=== PATIENT | female | born 1980 | race African-American/Black ===

== ENCOUNTER 2018-03-29 10:44 | Emergency (ER) | payer OTHER ==
[2018-03-29 11:22] VITALS: BP 133/77; PULSE 73; TEMP 98.5; BMI 30.2
[2018-03-29] MEDS ORDERED: SODIUM CHLORIDE 0.9% 1000 ML INFUS.BAG IV ONE (11:42)
--- NOTE | 2018-03-29 11:55 | PDOC ---
History of Present Illness - General Chief Complaint: Pain, Acute Stated Complaint: ABD PAIN Time Seen by Provider: 03/29/18 11:54 History Source: Patient Exam Limitations: No Limitations - History of Present Illness Initial Comments: Pt is a 37 yo F, with PMH of HTN (not taking medication), asthma, anemia, and ovarian cysts, presents with adnexal/groin and suprapubic pain over the past 2 weeks. The pain is crampy and intermittent, and has worsened. She also noticed foul-smelling white discharge and vaginal bleeding during intercourse during this time. She denies fevers/chills, headache, vision changes, nausea/vomiting, chest pain, SOB, abdominal pain, urinary symptoms, diarrhea/constipation, or leg swelling. Pt is (2 miscarriages). The pt has 1 sexual partner, and does not use control. Pt does not follow with PCP (Dr. Tsang) or [facility]-A[employer] [employer]ures doctor. Her LMP was Oct 8, and lasted a few more days than usual, although bleeding amount was similar to prior periods. 03/29/18 14:23 03/29/18 18:35 Past History - Past Medical History Allergies/Adverse Reactions: Allergies Allergy/AdvReac Type Severity Reaction Status Date / Time No Known Allergies Allergy Verified 02/18/16 08:50 Home Medications: Ambulatory Orders Metronidazole [Metrogel] 5 gm TP DAILY 5 Days #5 gel..gram. 03/29/18 Anemia: Yes Asthma: Yes Cancer: No Cardiac Disorders: No CVA: No COPD: No CHF: No Dementia: No Diabetes: No GI Disorders: No Disorders: No HTN: Yes Hypercholesterolemia: No Liver Disease: No Seizures: No Thyroid Disease: No - Surgical History Abdominal Surgery: No Appendectomy: No Cardiac Surgery: No Cholecystectomy: No Lung Surgery: (LT LUNG) Neurologic Surgery: No Orthopedic Surgery: No - Family Disease History Family Disease History: Heart Disease: Father (hypertension) - Reproductive History (#): 6 Para: 3 Therapeutic (s) & number: Yes (2) Spontaneous : 1 - Immunization History Immunization Up to Date: Yes - Suicide/Smoking/Psychosocial Hx Smoking History: Current every day smoker Have you smoked in the past 12 months: Yes Number of Cigarettes Smoked Daily: 8 Information on smoking cessation initiated: No 'Breaking Loose' booklet given: 02/18/16 Hx Alcohol Use: No Drug/Substance Use Hx: No Substance Use Type: None Hx Substance Use Treatment: No Review of Systems - Review of Systems Able to Perform ROS?: Yes Is the patient limited Slovak proficient: No Constitutional: Yes: Weight Stable. No: Chills, Diaphoresis, Fever, Loss of Appetite, Malaise, Weakness HEENTM: No: Blurred Vision, Recent change in vision, Double Vision, Nose Congestion, Difficulty Swallowing Respiratory: No: Cough, Orthopnea, Shortness of Breath Cardiac (ROS): No: Chest Pain, Edema, Irregular Heart Rate, Lightheadedness, Palpitations, Syncope, Chest Tightness ABD/GI: Yes: Abdominal Distended ("bloated"), Abdominal cramping (suprapubic and R groin pain, cramping.). No: Abd. Pain w/ defecation, Blood Streaked Bowels, Constipated, Diarrhea, Nausea, Poor Appetite, Poor Fluid Intake, Rectal Bleeding, Vomiting : Yes: Discharge (white discharge, foul smelling.). No: Burning, Dysuria, Frequency, Flank Pain, Hematuria, Incontinence, Pain, Urgency Musculoskeletal: No: Back Pain, Joint Pain Integumentary: No: Bruising, Rash Neurological: No: Headache, Numbness, Paresthesia, Seizure, Tremors, Weakness, Unsteady Gait, Ataxia, Dizziness Psychiatric: No: Sleep Pattern Change, Change in Appetite Endocrine: No: Increased Urine, Change in Weight Hematologic/Lymphatic: Yes: Anemia. No: Blood Clots, Easy Bleeding, Easy Bruising All Other Systems: Reviewed and Negative *Physical Exam - Vital Signs Last Vital Signs Temp Pulse Resp BP Pulse Ox 98.5 F 73 18 133/77 100 03/29/18 11:19 03/29/18 11:19 03/29/18 11:19 03/29/18 11:19 03/29/18 11:19 - Physical Exam General Appearance: Yes: Nourished, Appropriately Dressed. No: Apparent Distress (vitals stable, pt able to lie comfortably) HEENT: positive: EOMI, ELIZABETH, Normal ENT Inspection, Normal Voice, Symmetrical, Pharynx Normal, Hearing Grossly Normal. negative: Scleral Icterus (R), Scleral Icterus (L), Tonsillar Exudate, Rhinorrhea Neck: positive: Trachea midline, Normal Thyroid, Supple. negative: Tender, Rigid, Lymphadenopathy (R), Lymphadenopathy (L) Respiratory/Chest: positive: Lungs Clear, Normal Breath Sounds. negative: Chest Tender, Respiratory Distress, Accessory Muscle Use, Wheezing Cardiovascular: positive: Regular Rhythm, Regular Rate, S1, S2. negative: Edema , JVD, Murmur Vascular Pulses: Carotid (R): 4+, Carotid (L): 4+ Female Pelvic Exam: positive: normal external exam, cervical os closed, normal adnexa, normal size ovaries, discharge (minimal thin white discharge), adnexal tenderness (mild L adnexal tenderness). negative: CMT, Bartholin mass, Scalene Gland, vaginal bleeding (no blood in vaginal vault) Gastrointestinal/Abdominal: positive: Normal Bowel Sounds, Flat, Soft, Organomegaly, Pulsatile Mass. negative: Tender, Distended, Guarding, Rebound Rectal Exam: positive: deferred Lymphatic: negative: Adenopathy, Tenderness Musculoskeletal: positive: Normal Inspection, CVA Tenderness Extremity: positive: Normal Capillary Refill, Normal Inspection, Normal Range of Motion, Pelvis Stable. negative: Tender, Pedal Edema Integumentary: positive: Normal Color, Dry, Warm. negative: Jaundice, Rash Neurologic: positive: blackjack dealer II-XII NML intact, Fully Oriented, Alert, Normal Mood/ Affect, Normal Response, Motor Strength 10/07 ED Treatment Course - LABORATORY CBC & Chemistry Diagram: 03/29/18 11:50 03/29/18 11:50 Medical Decision Making - Medical Decision Making Pt was seen at bedside, also seen by Dr. Cardona. Pt presenting with adnexal/ groin and suprapubic pain over the past 2 weeks. The pain is crampy and intermittent, and has worsened. She also noticed foul-smelling white discharge and vaginal bleeding during intercourse during this time. The pt has 1 sexual partner, and does not use control. Pt does not follow with PCP (Dr. Tsang ) or [facility] [employer] doctor. Considering bacterial vaginosis versus cervicitis (gonnorrhea or chlaymdia) versus ovarian cyst rupture. Ordered CBC, CMP, UA, beta-hcg, pelvic ultrasound. PE showed slightly erythematous cervix with runny, white discharge, and mild L adnexal tenderness to palpation. Ordered gonorrhea and chlamydia cultures. Provided pt 1 L NS and 1 g IV ofirmev for pain control. 03/29/18 12:57 CBC: no increased WBC, H/H higher than previous labs (9.1/29.3 today, 01/28 in 2015). CMP WNL, B-hcg negative for . UA negative for infection. Pt taken to US. Awaiting US read. 03/29/18 14:14 [id number] US/TRANSVAGINAL ULTRASOUND US HISTORY PROVIDED: Left lower quadrant pain. Real time examination of the pelvis utilizing the transvaginal probe demonstrates the following: The uterus is normal in size measuring 8.0 x 5.8 x 5.2 cm. No uterine masses are seen. A normal appearing endometrium of 9 mm thickness is identified. A nabothian cyst is noted within the cervix. The ovaries are normal in size and texture with arterial flow documented to both ovaries. There is no evidence of adnexal masses. A trace amount of free fluid is noted within the culde- sac. IMPRESSION: Trace free pelvic fluid, otherwise normal pelvic sonogram. 03/29/18 14:23 US negative for acute pathology. Pending cultures from lab. Pt will be discharge to home, with PCP and OB-PRODUCTION CLERKS SUPERVISOR follow-up. Strict return precautions provided with pt understanding. Sent Metrogel to pt pharmacy for BV treatment. 03/29/18 14:49 *DC/Admit/Observation/Transfer Diagnosis at time of Disposition: Pelvic pain, Vaginal discharge - Discharge Dispostion Disposition: HOME Condition at time of disposition: Good Decision to Admit order: No - Prescriptions Prescriptions: Metronidazole [Metrogel] 5 gm TP DAILY 5 Days #5 gel..gram. - Referrals Referrals: [facility] – [place], [place] [facility] [place] [Provider Group] Sancho Mcconnell MD [Staff Physician] - - Patient Instructions Printed Discharge Instructions: DI for Vaginal Bleeding, DI for Pelvic Pain Additional Instructions: You were seen in the ER today for pelvic pain, vaginal bleeding, and discharge. Your labwork and the pelvic ultrasound were normal. Please follow-up with a primary care doctor at [facility] and our OB-PRODUCTION CLERKS SUPERVIS[facility] doctor to discuss your visit and ensure your symptoms have resolved. We have sent Metrogel for bacterial vaginosis to your pharmacy. Our lab will reach out to you if any cultures are positive. Please return to the ER if you have worsening pain, bleeding, or discharge that does not resolve or has an odd odor, fevers or chills, or any other concerns. - Post Discharge Activity
[2018-03-29 12:01] LABS: BASO % 0.4 % (0-2.0); HEMATOCRIT 29.3 % (32.4-45.2); HEMOGLOBIN 9.1 GM/dL (10.7-15.3); LYMPH % 19.6 % (8-40); MCH 22.7 pg (25.7-33.7); MEAN CELL VOLUME 73.1 fl (80-96); MEAN PLT VOLUME 9.5 fl (7.5-11.1); MONO % 7.7 % (3.8-10.2); NEUT % 70.3 % (42.8-82.8); PLATELET COUNT 165 K/MM3 (134-434); RBC 4.01 M/mm3 (3.60-5.2); RDW 18.9 % (11.6-15.6); WHITE BLOOD COUNT 6.2 K/mm3 (4.0-10.0)
[2018-03-29 12:16] LABS: URINE APPEARANCE CLEAR; URINE BILIRUBIN NEGATIVE (<2.0 mg/dL); URINE COLOR YELLOW; URINE GLUCOSE (UA) NEGATIVE (NEGATIVE); URINE KETONE NEGATIVE (NEGATIVE); URINE LEUK ESTERASE TRACE (NEGATIVE); URINE NITRITE NEGATIVE (NEGATIVE); URINE PROTEIN NEGATIVE (NEGATIVE); URINE UROBILINOGEN 4.0 E.U/dl mg/dL (0.2-1.0)
[2018-03-29 12:18] LABS: HCG,QUALITATIVE URINE Negative
[2018-03-29 12:27] LABS: ANION GAP 6 MMOL/L (8-16); BLOOD UREA NITROGEN 12 mg/dL (7-18); CALCIUM 8.5 mg/dL (8.5-10.1); CHLORIDE 108 mmol/L (98-107); CO2 25 mmol/L (21-32); CREATININE 0.8 mg/dL (0.55-1.3); GLUCOSE,RANDOM 117 mg/dL (74-106); POTASSIUM 3.7 mmol/L (3.5-5.1); SODIUM 139 mmol/L (136-145)
--- NOTE | 2018-03-29 12:31 | PDOC ---
Attending Attestation - HPI HPI: 03/29/18 13:12 CC: Left sided pelvic pain. HPI: The patient is a 37 year old female, with a significant past medical history HTN and asthma, who presents to the emergency department with, left sided suprapubic pain. Patient also endorses white discharge. Her LMP was 10/8. She denies recent fevers, chills, headache or dizziness. She denies recent nausea, vomit, diarrhea or constipation. She denies recent dysuria, frequency, urgency or hematuria. She denies recent chest pain or shortness of breath. Allergies: NKDA <Dorian Cameron - Last Filed: 03/29/18 13:12> - Resident Resident Name: Annalisa Maharaj - ED Attending Attestation I have performed the following: I have examined & evaluated the patient, The case was reviewed & discussed with the resident, I agree w/resident's findings & plan, Exceptions are as noted - Physicial Exam PE: 03/29/18 13:23 Vitals: Triage Vital signs reviewed General Appearance: no acute distress, well nourished well developed, Head: Atraumatic, Neck: Supple;No Nucal rigidity Chest Wall: Nontender Cardiac: Regular rate and rhythym, no murmurs, no rubs, no gallops, Lungs: Clear to auscultation bilateral, good air movement bilaterally, Abdomen: Soft, non distended, normal bowel sounds, non tender to palpation Extremities: Full range of motion to all extremities, no cyanosis, clubbing, or edema Skin: Warm and dry, no rashes or lesions, no rash, no petechiae Psych: normal mood, normal affect - Medical Decision Making 03/29/18 13:23 Mild left-sided adnexal discomfort. Well-appearing no apparent distress History of ovarian cysts in the past No rebound no guarding no significant abdominal tenderness to palpation no fever no white count patient's at her baseline anemia no evidence of UTI she is not She has a transvaginal ultrasound pending we'll reassess after this No acute findings on ultrasound we'll treat with MetroGel she'll follow-up with her WELDER FITTER this week. Findings, the need for follow-up and strict return instructions discussed with patient. <Yariel Cardona - Last Filed: 03/29/18 17:01> Attestations - Attestations 03/29/18 13:12 Documentation prepared by Dorian Cameron, acting as bilingual medical receptionist for Yariel Cardona MD. <Dorian Cameron - Last Filed: 03/29/18 13:12>
[2018-03-29 12:35] LABS: EPI CELLS FEW /HPF (FEW); URINE BACTERIA RARE /hpf (NONE SEEN); URINE MUCUS RARE
[2018-03-29] MEDS ORDERED: ACETAMINOPHEN 1000 MG/100 ML VIAL (NON FORMULARY) IVPB ONE (12:57)
[2018-03-29] MEDS ORDERED: ACETAMINOPHEN INJECTION 100 ML IVPB ONE (13:11)
== END 2018-03-29 14:45 | disposition home or self-care (01) ==
LOC: JER 10:44
DX: R10.2 Pelvic and perineal pain (principal); N89.8 Other specified noninflammatory disorders of vagina; I10 Essential (primary) hypertension; J45.909 Unspecified asthma, uncomplicated
CPT/HCPCS: 36415; 76830-TC; 80048; 81003; 81015; 84702; 84703; 85025; 87086; 87491; 87591; 99281-25; J0131; J7030

== ENCOUNTER 2018-04-14 13:06 | Emergency (ER) | payer OTHER ==
[2018-04-14 13:16] VITALS: BMI 30.2
--- NOTE | 2018-04-14 14:10 | PDOC ---
History of Present Illness - General Chief Complaint: Headache Stated Complaint: SEVERE HEADACHE Time Seen by Provider: 04/14/18 13:37 History Source: Patient - History of Present Illness Initial Comments: 04/14/18 14:05 37F w/ pmhx of HTN, asthma, anemia, ovarian cysts presents with 5 day hx of headache. Pt states the headache has been progressively worse and decided to come to the ED because of new onset numbness around the periorbital region. She states she has never had these symptoms before. Denies taking anything at home for the headache. Pt reports the numbness started yesterday around the R eye and has now traveled to the L eye. She also admits to blurred vision since yesterday. Pt has not followed up with her PCP, Dr. Tsang, in many years. Pt states she has been taking Motrin for the headache the past 5 days, but yesterday she took a Percocet which helped alleviate the pain. Currently, she admits to pain behind the L eye as well as photophobia. Pt also reports sensation of "ear popping" yesterday. Pt denies any recent stressors or anxiety. Pt admits that her niece recently of brain cancer is worried about her symptoms. Additionally, she admits to cramping of her fingers. Of note, she was recently here last month for treatment of bacterial vaginosis which has since resolved. Denies f/c, chest pain, sob, abd pain, cold symptoms, sore throat. PMHx: HTN, asthma, anemia, ovarian cysts PShx: "collapsed lung" in 2013 Fhx: Multiple relatives with pancreatic/lung cx; Mother-HTN, migraines Social: Smokes 1/2 PPD x10 years, drinks alcohol socially, denies rec drug use Pt is currently self-employed and is a home health aide. She currently lives at home in an apt with her 3 kids and . Past History - Past Medical History Allergies/Adverse Reactions: Allergies Allergy/AdvReac Type Severity Reaction Status Date / Time No Known Allergies Allergy Verified 04/14/18 13:16 Anemia: Yes Asthma: Yes Cancer: No Cardiac Disorders: No CVA: No COPD: No CHF: No Dementia: No Diabetes: No GI Disorders: No Disorders: No HTN: Yes Hypercholesterolemia: No Liver Disease: No Seizures: No Thyroid Disease: No - Surgical History Abdominal Surgery: No Appendectomy: No Cardiac Surgery: No Cholecystectomy: No Lung Surgery: (LT LUNG 2014) Neurologic Surgery: No Orthopedic Surgery: No - Family Disease History Family Disease History: Heart Disease: Father (hypertension) - Reproductive History (#): 6 Para: 3 Therapeutic (s) & number: Yes (2) Spontaneous : 1 - Immunization History Immunization Up to Date: Yes - Suicide/Smoking/Psychosocial Hx Smoking History: Current every day smoker Have you smoked in the past 12 months: Yes Number of Cigarettes Smoked Daily: 8 Information on smoking cessation initiated: No 'Breaking Loose' booklet given: 02/18/16 Hx Alcohol Use: No Drug/Substance Use Hx: No Substance Use Type: None Hx Substance Use Treatment: No Review of Systems - Review of Systems Able to Perform ROS?: Yes Is the patient limited Welsh proficient: No Constitutional: Yes: Chills. No: Fever HEENTM: Yes: Eye Pain (L eye), Blurred Vision, Recent change in vision, Ear Pain. No: Nose Congestion, Throat Pain, Mouth Pain, Difficulty Swallowing Respiratory: No: Cough, Shortness of Breath, SOB with Exertion Cardiac (ROS): No: Chest Pain ABD/GI: No: Constipated, Diarrhea Musculoskeletal: Yes: Other (L leg pain). No: Neck Pain Neurological: Yes: See HPI Psychiatric: No: Anxiety, Stressors *Physical Exam - Vital Signs Last Vital Signs Temp Pulse Resp BP Pulse Ox 98 F 97 H 18 139/73 04/14/18 13:13 04/14/18 13:13 04/14/18 13:13 04/14/18 13:13 - Physical Exam General Appearance: Yes: Nourished, Appropriately Dressed HEENT: positive: EOMI, ELIZABETH, Normal ENT Inspection, Hearing Grossly Normal. negative: Pharyngeal Erythema Neck: positive: Supple Respiratory/Chest: positive: Lungs Clear, Normal Breath Sounds Cardiovascular: positive: Regular Rhythm, Regular Rate, S1, S2. negative: Murmur Vascular Pulses: Dorsalis-Pedis (R): 2+, Doralis-Pedis (L): 2+ Gastrointestinal/Abdominal: positive: Normal Bowel Sounds Extremity: positive: Normal Range of Motion. negative: Pedal Edema Integumentary: positive: Normal Color, Dry, Warm Neurologic: positive: maintenance and utilities supervisor II-XII NML intact, Fully Oriented, Alert, Motor Strength 5/5, Numbness (L orbital region), Finger to Nose (normal). negative: Facial Droop Medical Decision Making - Medical Decision Making 04/14/18 15:00 37F w/ pmhx of HTN, asthma, anemia, ovarian cyst presents with 5 day hx of LAWLER and 1 day hx of periorbital numbness. -Pt reports having migraine symptoms years ago, and also has fhx of migraines ( mother). -Will obtain head CT -Will given Reglan 10 IV, Tylenol IV 1g, IVf, and do head CT 04/14/18 17:26 -await head CT results 04/14/18 18:40 -Head CT (IOC): No IC bleed, extra-axial fluid collection, mass effect, midline shift, hydrocephalus, acute territorial infarct or depressed skull fracture evident. -Instructed patient to take Ibuprofen, Tylenol for headaches. Advised to follow up with PCP and neurologist. DC to home. Case discussed with Dr. Davalos. Deysi Maloney, - PGY1 *DC/Admit/Observation/Transfer Diagnosis at time of Disposition: Headache Qualifiers: Headache type: unspecified Headache chronicity pattern: acute headache Intractability: not intractable Qualified Code(s): R51 - Headache - Discharge Dispostion Disposition: HOME Condition at time of disposition: Good Decision to Admit order: No - Referrals Referrals: Ewdard Mueller MD [Staff Physician] - Tray Mcgrath MD [Staff Physician] - - Patient Instructions Printed Discharge Instructions: Migraine -- Adult Additional Instructions: You were seen in the ED for complaints of headache and facial numbness. In the ED, a head CT was done that did not show any abnormalities. You were given Reglan, Tylenol and IV fluids for your symptoms. There is no acute need for hospitalization at this time. You are being discharged home. MEDICAL RECOMMENDATIONS: Please take Ibuprofen 600 mg every 4 hours as needed for headache. You may also take Tylenol 650 mg ever 4 hours as needed for headache. CONSULT RECOMMENDATIONS: Please follow up with your primary care physician within 1 week. You have been given a referral to see a neurologist. Please make an appointment with Dr. Mueller or Dr. Mcgrath within 1 week for further evaluation of your symptoms. If you experience worsening headache, slurred speech, facial droop, problems with balance and coordination, chest pain, shortness of breath, or difficulty walking, please proceed to your nearest emergency room immediately. - Post Discharge Activity
[2018-04-14] MEDS ORDERED: METOCLOPRAMIDE HCL INJECTION 10 MG/2 ML VIAL IVPB ONE (14:46)
[2018-04-14] MEDS ORDERED: ACETAMINOPHEN 1000 MG/100 ML VIAL (NON FORMULARY) IVPB ONE (14:46)
[2018-04-14] MEDS ORDERED: SODIUM CHLORIDE 1,000 ML IV STA (14:47)
--- NOTE | 2018-04-14 15:24 | PDOC ---
Attending Attestation - HPI HPI: 04/14/18 16:34 The patient is a 37 year old female, with a significant PMH of migraines, asthma, anemia, HTN, migraines, ovarian cysts, PTX s/p VATS who presents to the emergency department complaining of 5 days of headaches that progressively worsened today. The patient reports she endorses associated symptoms of clogged ear, cramped fingers and intermittent left and right side face numbness. Her LMP was 04/07/18. The patient denies any LOC, neurological deficit , tingling, and change of vision. Denies any sick contact. Denies chest pain and shortness of breath. Has taken tylenol/motrin intermittently with some improvement, last dosing yesterday. Allergies: NKDA Past surgical history: Collapsed lung in 2014 s/p VATS Social history: Smokes 1/2 PPD x10 years, drinks alcohol socially, denies rec drug use PCP: None reported Documentation prepared by Dudley Marsh, acting as medical coordinator pesticide use for Rosario Davalos MD. - Physicial Exam PE: 04/14/18 15:35 General: Well appearing, awake and alert, NAD. HEENT: TMS clear bilaterally. NCAT, PERRL, EOMI, clear conjunctiva, anicteric, moist mucus membranes, clear oropharynx, no oral lesions.. Neck: neck supple, FROM Resp: CTAB, normal and even respirations, no respiratory distress CVS: RRR, no murmurs, 2+ peripheral pulses throughout, no peripheral edema Abdomen: soft, NTND, no peritoneal signs. Back: nontender, normal inspection and ROM MSK: no edema, LAU x4, ROM intact. No clubbing or cyanosis. normal bulk and tone. Extrem: no calf tenderness Neuro: Alert, oriented to person time and place. CN II-XII grossly intact. Strength prox and distally 5/5 throughout. Sensation grossly intact to light touch. LAU x4. Gait stable. Speech clear. Skin: warm and well perfused, cap refill <2 sec, normal color Documentation prepared by Dudley Marsh, acting as medical coordinator pesticide use for Rosario Davalos MD. <Dudley Marsh - Last Filed: 04/14/18 16:34> - Resident Resident Name: Balagot,Deysi - ED Attending Attestation I have performed the following: I have examined & evaluated the patient, The case was reviewed & discussed with the resident, I agree w/resident's findings & plan - Medical Decision Making 04/14/18 15:24 I, Rosario Davalos MD, attest that this document has been prepared under my direction and personally reviewed by me in its entirety. I further attest, that it accurately reflects all work, treatment, procedures and medical decision -making performed by me. Chaim 37F w/ pmhx of migraines, HTN, asthma, anemia, ovarian cysts presents generalized headache x 5 days. Vitals wnl, no fever. No meningeal signs. No focal deficits. can be viral etiology/sinusitis with mild ENT complaints. Given new headache, CT head to r/o mass lesion or abnormalities, given atypical features and facial paresthesias. Given reglan, tylenol and IVF, reassess. s/o pending reeval, CT read and dispo. 04/14/18 17:13 04/14/18 17:15 <Rosario Davalos - Last Filed: 04/14/18 17:15>
[2018-04-14] MEDS ORDERED: ACETAMINOPHEN INJECTION 100 ML IVPB ONE (16:16)
[2018-04-14] MEDS ORDERED: METOCLOPRAMIDE HCL INJECTION 10 MG/2 ML VIAL ONE (16:16)
[2018-04-14 19:20] VITALS: BP 132/72; PULSE 89; TEMP 98.2
== END 2018-04-14 19:18 | disposition home or self-care (01) ==
LOC: JER 13:06 → JERFT 13:06 → JER 19:18
PROC: 3E033NZ Introduction of Analgesics, Hypnotics, Sedatives into Peripheral Vein, Percutaneous Approach (ICD-10-PCS; principal; 2018-04-14)
PROC: 3E033GC Introduction of Other Therapeutic Substance into Peripheral Vein, Percutaneous Approach (ICD-10-PCS; 2018-04-14)
DX: R51 Headache (principal); I10 Essential (primary) hypertension; J45.909 Unspecified asthma, uncomplicated; D64.9 Anemia, unspecified
CPT/HCPCS: 70450-TC; 96374; 96375; 99282-25; J0131; J7030

== ENCOUNTER 2019-08-13 18:11 | Emergency (ER) | payer OTHER ==
[2019-08-13] MEDS ORDERED: SODIUM CHLORIDE 1,000 ML IV STA (18:28)
--- NOTE | 2019-08-13 18:32 | PDOC ---
Rapid Medical Evaluation Chief Complaint: Vaginal Bleeding Time Seen by Provider: 08/13/19 18:27 Medical Evaluation: Allergies Allergy/AdvReac Type Severity Reaction Status Date / Time No Known Allergies Allergy Verified 04/14/18 13:16 Vital Signs Temp Pulse Resp BP Pulse Ox 98.3 F 83 18 108/69 100 08/13/19 18:25 08/13/19 18:25 08/13/19 18:25 08/13/19 18:25 08/13/19 18:25 08/13/19 18:29 I have performed a brief in-person evaluation of this patient. The patient presents with a chief complaint of: Pt is a 39 y/o female who presents to the ED with complaint of dizziness and a syncopal episode just prior to arrival. The patient has had vaginal bleeding for the last 1.5 months after stopping the depo shot secondary to insurance reasons. The patient states she has had 3 transfusions in the past, last one in March 2019. Pertinent physical exam findings: stable. Non-toxic appearing, walking without assistance. I have ordered the following: saline lock, labs, ekg The patient will proceed to the ED for further evaluation Discharge Disposition - Diagnosis Syncope - Discharge Dispostion Condition at time of disposition: Stable - Referrals - Patient Instructions - Post Discharge Activity
[2019-08-13 18:44] VITALS: BP 108/69; PULSE 83; TEMP 98.3; BMI 29.5
[2019-08-13 19:00] LABS: BASO % 0.2 % (0-2.0); EOS % 2.6 % (0-4.5); HEMATOCRIT 31.2 % (32.4-45.2); HEMOGLOBIN 9.7 GM/dL (10.7-15.3); MCH 23.8 pg (25.7-33.7); MEAN CELL VOLUME 76.8 fl (80-96); MEAN PLT VOLUME 8.5 fl (7.5-11.1); MONO % 4.8 % (3.8-10.2); NEUT % 79.4 % (42.8-82.8); PLATELET COUNT 169 K/MM3 (134-434); RBC 4.06 M/mm3 (3.60-5.2); WHITE BLOOD COUNT 6.1 K/mm3 (4.0-10.0)
[2019-08-13 21:09] LABS: HCG,QUALITATIVE URINE Negative
[2019-08-13 21:16] LABS: EPI CELLS 15.9 /HPF (0-5/HPF); HYALINE CASTS 27 /lpf (0-8); URINE APPEARANCE CLOUDY; URINE BACTERIA 274.8 /hpf (NEGATIVE); URINE BILIRUBIN NEGATIVE (NEGATIVE); URINE COLOR DK YELLOW; URINE GLUCOSE (UA) NEGATIVE (NEGATIVE); URINE KETONE TRACE (NEGATIVE); URINE LEUK ESTERASE 1+ (NEGATIVE); URINE NITRITE NEGATIVE (NEGATIVE); URINE PROTEIN 1+ (NEGATIVE); URINE RBC 3 /hpf (0-4); URINE WBC 7 /hpf (0-5)
[2019-08-13 22:01] LABS: YEAST NONE SEEN (NEGATIVE)
--- NOTE | 2019-08-13 22:06 | PDOC ---
History of Present Illness - General Chief Complaint: Vaginal Bleeding Stated Complaint: WEAKNESS/BLEEDING Time Seen by Provider: 08/13/19 18:27 History Source: Patient Exam Limitations: No Limitations - History of Present Illness Initial Comments: 08/13/19 21:53 Patient is 39 year old female with h/o pneuothorax, asthma, anemia, complaining of dizziness x3 days. Patient states that she basically has been laying in bed for the past 3 days due to dizziness-described as a spinning sensation. States that she got up to go to the bathroom today, got dizzy and fell about 5:30 PM. States that she was able to get up on her own and called the ambulance. Patient reports that she did not hit her head, she has no complaints of pain currently. States that she found herself on the floor and when she woke up had slight confusion after the incident. She called out to her mother who called the ambulance for transport to the hospital. She is concerned because she has a history of anemia and has had to have 3 blood transfusions in the past due to anemia. States that she has been having some vaginal bleeding for about 1-1/2 months. She was formally on Depakote did not renew her shot in June due to insurance reasons and since July has been bleeding persistently, changing 4 pads a day. She denies any abdominal pain, any nausea, vomiting, fever, chills. PMD: Dr. Leo PMHX: As above PSOCHX: PFAMHX: Noncontributory ALL: NKDA GENERAL/CONSTITUTIONAL: [No fever or chills. No weakness. No weight change.] HEAD, EYES, EARS, NOSE AND THROAT: [No change in vision. No ear pain or discharge. No sore throat.] CARDIOVASCULAR: [No chest pain or shortness of breath.] RESPIRATORY: [No cough, wheezing, or hemoptysis.] GASTROINTESTINAL: [No nausea, vomiting, diarrhea or constipation. No rectal bleeding.] GENITOURINARY: [No dysuria, frequency, or change in urination.] MUSCULOSKELETAL: [No joint or muscle swelling or pain. No neck or back pain.] SKIN AND BREASTS: [No rash or easy bruising.] NEUROLOGIC: [No headache, (+) vertigo, loss of consciousness, or loss of s ensation.] PSYCHIATRIC: [No depression or anxiety.] ENDOCRINE: [No increased thirst. No abnormal weight change.] HEMATOLOGIC/LYMPHATIC: [No anemia, easy bleeding, or history of blood clots.] ALLERGIC/IMMUNOLOGIC: [No hives or skin allergy. No latex allergy.] GENERAL: [The patient is awake, alert, and fully oriented, in no acute distress.] HEAD: [Normal with no signs of trauma.] EYES: [Pupils equal, round and reactive to light, extraocular movements intact, sclera anicteric, conjunctiva clear.] ENT: [Ears normal, nares patent, oropharynx clear without exudates. Moist mucous membranes.] NECK: [Normal range of motion, supple without lymphadenopathy, JVD, or masses.] LUNGS: [Breath sounds equal, clear to auscultation bilaterally. No wheezes, and no crackles.] HEART: [Regular rate and rhythm, normal S1 and S2 without murmur, rub.] ABDOMEN: [Soft, nontender, normoactive bowel sounds. No guarding, no rebound. No masses.] EXTREMITIES: [Normal range of motion, no edema. No clubbing or cyanosis. No cords, erythema, or tenderness.] NEUROLOGICAL: [Cranial nerves II through XII grossly intact. Normal speech, normal gait.] PSYCH: [Normal mood, normal affect.] SKIN: [Warm, Dry, normal turgor, no rashes or lesions noted.] Past History - Past Medical History Allergies/Adverse Reactions: Allergies Allergy/AdvReac Type Severity Reaction Status Date / Time No Known Allergies Allergy Verified 04/14/18 13:16 Anemia: Yes Asthma: Yes Cancer: No Cardiac Disorders: No CVA: No COPD: No CHF: No Dementia: No Diabetes: No GI Disorders: No Disorders: No HTN: Yes Hypercholesterolemia: No Liver Disease: No Seizures: No Thyroid Disease: No - Surgical History Abdominal Surgery: No Appendectomy: No Cardiac Surgery: No Cholecystectomy: No Lung Surgery: (LT LUNG 2014) Neurologic Surgery: No Orthopedic Surgery: No - Reproductive History (#): 6 Para: 3 Therapeutic (s) & number: Yes (2) Spontaneous : 1 - Immunization History Immunization Up to Date: Yes - Psycho Social/Smoking Cessation Hx Smoking History: Never smoked Have you smoked in the past 12 months: No Number of Cigarettes Smoked Daily: 8 Information on smoking cessation initiated: No 'Breaking Loose' booklet given: 02/18/16 Hx Alcohol Use: No Drug/Substance Use Hx: No Substance Use Type: None Hx Substance Use Treatment: No Cardiac Specific PMH - Complaint Specific PMHX Pacemaker: No *Physical Exam - Vital Signs Last Vital Signs Temp Pulse Resp BP Pulse Ox 98.3 F 83 18 108/69 100 08/13/19 18:25 08/13/19 18:25 08/13/19 18:25 08/13/19 18:25 08/13/19 18:25 ED Treatment Course - LABORATORY CBC & Chemistry Diagram: 08/13/19 18:40 08/13/19 21:47 - ADDITIONAL ORDERS Additional order review: Laboratory Results 08/13/19 08/13/19 08/13/19 21:47 21:45 20:30 PT with INR 11.60 INR 0.98 PTT (Actin FS) 31.2 Sodium 139 Potassium 4.2 Chloride 108 H Carbon Dioxide 24 Anion Gap 7 L BUN 9.0 Creatinine 0.8 Est GFR (CKD-EPI)AfAm 107.64 Est GFR (CKD-EPI)NonAf 92.87 Random Glucose 111 H Calcium 8.3 L Total Bilirubin 0.2 AST 23 ALT 21 Alkaline Phosphatase 54 Creatine Kinase 150 Creatine Kinase Index No Result Required. CK-MB (CK-2) < 1.0 Troponin I < 0.02 Total Protein 7.5 Albumin 3.4 Urine Color Dk yellow Urine Appearance Cloudy Urine pH 6.0 Ur Specific [place] 1.026 Urine Protein 1+ H Urine Glucose (UA) Negative Urine Ketones Trace H Urine Blood 3+ H Urine Nitrite Negative Urine Bilirubin Negative Urine Urobilinogen 1.0 Ur Leukocyte Esterase 1+ H Urine WBC (Auto) 7 Urine RBC (Auto) 3 Urine Casts (Auto) 27 U Pathogenic Cast Auto None seen U Epithel Cells (Auto) 15.9 Urine Bacteria (Auto) 274.8 Urine Yeast (Auto) None seen Urine HCG, Qual Negative Blood Type Antibody Screen 08/13/19 18:40 PT with INR INR PTT (Actin FS) Sodium Potassium Chloride Carbon Dioxide Anion Gap BUN Creatinine Est GFR (CKD-EPI)AfAm Est GFR (CKD-EPI)NonAf Random Glucose Calcium Total Bilirubin AST ALT Alkaline Phosphatase Creatine Kinase Creatine Kinase Index CK-MB (CK-2) Troponin I Total Protein Albumin Urine Color Urine Appearance Urine pH Ur Specific [place] Urine Protein Urine Glucose (UA) Urine Ketones Urine Blood Urine Nitrite Urine Bilirubin Urine Urobilinogen Ur Leukocyte Esterase Urine WBC (Auto) Urine RBC (Auto) Urine Casts (Auto) U Pathogenic Cast Auto U Epithel Cells (Auto) Urine Bacteria (Auto) Urine Yeast (Auto) Urine HCG, Qual Blood Type O POSITIVE Antibody Screen Negative 08/13/19 18:40 RBC 4.06 MCV 76.8 L MCHC 31.0 L RDW 19.0 H MPV 8.5 D Neutrophils % 79.4 Lymphocytes % 13.0 D Monocytes % 4.8 Eosinophils % 2.6 Basophils % 0.2 - Medications Given in the ED: ED Medications Discontinued Medications Generic Name Dose Route Start Last Admin Trade Name Freq PRN Reason Stop Dose Admin Sodium Chloride 1,000 mls @ 1,000 mls/hr 08/13/19 18:28 08/13/19 21:08 Normal Saline - IV 08/13/19 19:27 1,000 mls/hr ASDIR STA Administration Medical Decision Making - Medical Decision Making 08/13/19 21:53 Patient is 39 year old female with h/o pneuothorax, asthma, anemia, complaining of dizziness x3 days. Patient states that she basically has been laying in bed for the past 3 days due to dizziness-described as a spinning sensation. States that she got up to go to the bathroom today, got dizzy and fell about 5:30 PM. States that she was able to get up on her own and called the ambulance. Patient reports that she did not hit her head, she has no complaints of pain currently. States that she found herself on the floor and when she woke up had slight confusion after the incident. She called out to her mother who called the ambulance for transport to the hospital. She is concerned because she has a history of anemia and has had to have 3 blood transfusions in the past due to anemia. States that she has been having some vaginal bleeding for about 1-1/2 months. She was formally on Depakote did not renew her shot in June due to insurance reasons and since July has been bleeding persistently, changing 4 pads a day. She denies any abdominal pain, any nausea, vomiting, fever, chills. Patient with vertigo and a syncopal episode this evening. Work-up will include labs, EKG, cardiac enzymes IV fluids Reassess. 08/13/19 23:22 There are no acute findings on laboratory work. EKG: SR at 69 rate, normal axis, no ST-T wave changes Troponin is negative Patient feels improved I discussed the physical exam findings, ancillary test results and final diagnoses with the patient. I answered all of the patient's questions. The patient was satisfied with the care received and felt comfortable with the discharge plan and treatment plan. The Patient agrees to follow up with the primary care physician within 24-72 hours. Discharge - Discharge Information Problems reviewed: Yes Clinical Impression/Diagnosis: Syncope Qualifiers: Syncope type: vasovagal syncope Qualified Code(s): R55 - Syncope and collapse Condition: Stable Disposition: HOME - Follow up/Referral Referrals: Jose Lagos MD [Primary Care Provider] - Karlos Davidson MD [Staff Physician] - - Patient Discharge Instructions Patient Printed Discharge Instructions: DI for Syncope in Adults (Fainting) Additional Instructions: Your Discharge Instructions: You must call primary care physician within 24 hours to arrange follow-up. Return to the Emergency Department with any new, persistent or worsening symptoms, for fever, chills, SOB, dizziness or any other concerning changes that may occur. You must follow-up with your primary care doctor for referral to cardiology as indicated. - Post Discharge Activity
[2019-08-13 22:22] LABS: INR 0.98 (0.83-1.09); PROTHROMBIN TIME (PATIENT) 11.6 SEC (9.7-13.0)
[2019-08-13 22:25] LABS: ACTIVATED PTT 31.2 SECONDS (25.2-36.5)
[2019-08-13 22:53] LABS: ALBUMIN 3.4 g/dl (3.4-5.0); ALK PHOS 54 U/L (45-117); BILIRUBIN,TOTAL 0.2 mg/dL (0.2-1); CALCIUM 8.3 mg/dL (8.5-10.1); CHLORIDE 108 mmol/L (98-107); CO2 24 mmol/L (21-32); CREATININE 0.8 mg/dL (0.55-1.3); GLUCOSE,RANDOM 111 mg/dL (74-106); SGPT/ALT 21 U/L (13-61); SODIUM 139 mmol/L (136-145); TOT PROT 7.5 g/dl (6.4-8.2)
[2019-08-13 22:54] LABS: ANION GAP 7 MMOL/L (8-16); POTASSIUM 4.2 mmol/L (3.5-5.1); SGOT/AST 23 U/L (15-37)
--- NOTE | 2019-08-14 10:14 | EKG ---
Test Reason : Blood Pressure : / mmHG Vent. Rate : 069 BPM Atrial Rate : 069 BPM P-R Int : 142 ms QRS Dur : 090 ms QT Int : 394 ms P-R-T Axes : 029 038 040 degrees QTc Int : 422 ms NORMAL SINUS RHYTHM NORMAL ECG NO PREVIOUS ECGS AVAILABLE Confirmed by Miguel Dickens ([id number]) on 08/14/2019 10:13:52 AM Referred By: Confirmed By:Miguel Dickens
== END 2019-08-13 23:32 | disposition home or self-care (01) ==
LOC: JER 18:11
DX: R55 Syncope and collapse (principal); R42 Dizziness and giddiness; W18.39XA Other fall on same level, initial encounter; Y93.89 Activity, other specified; Y92.038 Other place in apartment as the place of occurrence of the external cause; Y99.8 Other external cause status; J45.909 Unspecified asthma, uncomplicated; D64.9 Anemia, unspecified; Z87.09 Personal history of other diseases of the respiratory system
CPT/HCPCS: 36415; 80053; 81003; 82550; 82553; 84484; 84703; 85025; 85610; 85730; 86850; 86900; 86901; 93005; 93010; 99284-25; J7030

== ENCOUNTER 2020-02-25 16:07 | Emergency (ER) | payer OTHER ==
[2020-02-25 16:20] VITALS: TEMP 98.7; BMI 32.3
--- NOTE | 2020-02-25 16:21 | PDOC ---
Rapid Medical Evaluation Chief Complaint: Respiratory Medical Evaluation: Allergies Allergy/AdvReac Type Severity Reaction Status Date / Time No Known Allergies Allergy Verified 04/14/18 13:16 02/25/20 16:15 39 yo h/o HTN, spontaneous pneumothorax, productive cough x 1 week, + chills, cp, nausea and sob. denies known sick contacts, recent travel. PE: speaking full sentences A/P: SOB ecg cxr labs, urine preg to main ED Discharge Disposition - Diagnosis SOB (shortness of breath) - Referrals - Patient Instructions - Post Discharge Activity
--- NOTE | 2020-02-25 17:00 | PDOC ---
History of Present Illness - General Chief Complaint: Respiratory Stated Complaint: SOB Time Seen by Provider: 02/25/20 16:27 History Source: Patient - History of Present Illness Timing/Duration: reports: other Past History - Medical History Allergies/Adverse Reactions: Allergies Allergy/AdvReac Type Severity Reaction Status Date / Time No Known Allergies Allergy Verified 04/14/18 13:16 Anemia: Yes Asthma: Yes Cancer: No Cardiac Disorders: No CVA: No COPD: No CHF: No Dementia: No Diabetes: No GI Disorders: No Disorders: No HTN: Yes Hypercholesterolemia: No Liver Disease: No Seizures: No Thyroid Disease: No - Surgical History Abdominal Surgery: No Appendectomy: No Cardiac Surgery: No Cholecystectomy: No Lung Surgery: (LT LUNG 2014) Neurologic Surgery: No Orthopedic Surgery: No - Reproductive History Is Patient Now?: No (#): 6 Para: 3 Therapeutic (s) & number: Yes (2) Spontaneous : 1 - Immunization History Immunization Up to Date: Yes - Psycho-Social/Smoking History Smoking History: Current every day smoker Have you smoked in the past 12 months: Yes Number of Cigarettes Smoked Daily: 20 Information on smoking cessation initiated: No 'Breaking Loose' booklet given: 02/18/16 - Substance Abuse Hx (Audit-C & DAST Scrn) How often the patient has a drink containing alcohol: Never Score: In Men: 4 or > Positive; In Women: 3 or > Positive: 0 Screen Result (Pos requires Nsg. Audit-10AR): Negative Review of Systems - Review of Systems Constitutional: No: Chills, Fever Respiratory: Yes: Shortness of Breath. No: Cough, Wheezing Cardiac (ROS): No: Chest Pain, Lightheadedness, Palpitations, Syncope *Physical Exam - Vital Signs Last Vital Signs Temp Pulse Resp BP Pulse Ox 98.7 F 85 18 150/95 100 02/25/20 16:15 02/25/20 16:15 02/25/20 16:15 02/25/20 16:15 02/25/20 16:15 - Physical Exam General Appearance: Yes: Appropriately Dressed, Moderate Distress HEENT: positive: Normal Voice Neck: positive: Supple Respiratory/Chest: positive: Lungs Clear, Normal Breath Sounds. negative: Respiratory Distress, Wheezing Cardiovascular: positive: Regular Rate, S1, S2 Extremity: negative: Tender, Swelling Integumentary: positive: Dry, Warm Neurologic: positive: Fully Oriented, Alert, Normal Mood/Affect ED Treatment Course - LABORATORY CBC & Chemistry Diagram: 02/25/20 17:00 02/25/20 17:00 - RADIOLOGY Radiology Studies Ordered: Category Date Time Status CHEST CTA [CT] Stat CT Scan 02/25/20 16:55 Ordered Medical Decision Making - Medical Decision Making 02/25/20 16:57 39 yo F, smoker, s/p VATs for L pneumo at [facility] 2 years ago, here with shortness of breath x2 days similar to when she had her pneumo per pt. Also complaining of pleuritic chest pain. No palpitation, diaphoresis, nausea, vomiting, LLE pain/swelling, cough, fever or chills. see exam R/o recurrent pneumo in smoker Stable but appears SOB and unable to speak in full sentences Transferred to resus room and placed on monitor w/ oxygen -CXR -EKG -labs 02/25/20 17:00 02/25/20 17:58 Hemoglobin 8.1. Patient now states she does have a history of anemia and has been transfused with blood x 3. Is supposed to be on iron pills but non- compliant. States she used to get heavy menses in the past but not currently. On records here, patient's hemoglobin has been between 8-9 going as far back as 2013. At this time, CTA chest still pending. As d/w Dr Dupree, if CTA neg, may consider transfusing 1 unit given sxs and discharge 02/25/20 18:37 CXR read as L lung scarring and possible medial pneumothorax. Patient currently in CT 02/25/20 19:15 Large, 25-30% pneumo to inferior medial portion of L lung. ED attending aware. Patient continues to be stable on 2 L O2. Patient signed out to ER resident at this time Discharge - Discharge Information Problems reviewed: Yes Clinical Impression/Diagnosis: SOB (shortness of breath), Pneumothorax on left Condition: Guarded Disposition: TRANSFER ACUTE CARE/OTHER HOSP - Follow up/Referral Referrals: Jose Lagos MD [Primary Care Provider] - - Patient Discharge Instructions - Post Discharge Activity
[2020-02-25 17:26] LABS: BASO % 0.1 % (0-2.0); EOS % 2.7 % (0-4.5); HEMATOCRIT 26.6 % (32.4-45.2); HEMOGLOBIN 8.1 GM/dL (10.7-15.3); LYMPH % 15.3 % (8-40); MCH 20.7 pg (25.7-33.7); MCHC 30.4 g/dl (32.0-36.0); MEAN CELL VOLUME 67.9 fl (80-96); MEAN PLT VOLUME 9.9 fl (7.5-11.1); NEUT % 73.9 % (42.8-82.8); PLATELET COUNT 192 K/MM3 (134-434); RBC 3.92 M/mm3 (3.60-5.2); RDW 21.1 % (11.6-15.6); WHITE BLOOD COUNT 5.2 K/mm3 (4.0-10.0)
[2020-02-25 17:52] LABS: ALBUMIN 3.7 g/dl (3.4-5.0); ALK PHOS 57 U/L (45-117); ANION GAP 6 MMOL/L (8-16); BILIRUBIN,TOTAL 0.3 mg/dL (0.2-1); BLOOD UREA NITROGEN 8.3 mg/dL (7-18); CALCIUM 8.6 mg/dL (8.5-10.1); CHLORIDE 109 mmol/L (98-107); CO2 24 mmol/L (21-32); CREATININE 0.9 mg/dL (0.55-1.3); GLUCOSE,RANDOM 105 mg/dL (74-106); POTASSIUM 3.9 mmol/L (3.5-5.1); SGOT/AST 28 U/L (15-37); SGPT/ALT 22 U/L (13-61); SODIUM 139 mmol/L (136-145); TOT PROT 8.1 g/dl (6.4-8.2)
--- OUTSIDE RECORDS SUMMARY | 2020-02-25 18:01 | XMS ---
:1980 Author Organization [facility] Support Name Relationship Address Phone UE Unavailable Unavailable Unavailable AMA KILGORE MOTHER [address] [place] [address] AMA KILGORE Sister [address] [place] [address] Re-disclosure Warning The records that you are about to access may contain information from federally- assisted alcohol or drug abuse programs. If such information is present, then the following federally mandated warning applies: This information has been disclosed to you from records protected by federal confidentiality rules (42 CFR part 2). The federal rules prohibit you from making any further disclosure of this information unless further disclosure is expressly permitted by the written consent of the person to whom it pertains or as otherwise permitted by 42 CFR part 2. A general authorization for the release of medical or other information is NOT sufficient for this purpose. The Federal rules restrict any use of the information to criminally investigate or prosecute any alcohol or drug abuse patient.The records that you are about to access may contain highly sensitive health information, the redisclosure of which is protected by Article 27-F of the [facility] Public Health law. If you continue you may haveaccess to information: Regarding HIV / AIDS; Provided by facilities licensed or operated by the [facility] Office of Mental Health; or Provided by the [facility] Office for People With Developmental Disabilities. If such information is present, then the following [facility] mandated warning applies: This information has been disclosed to you from confidential records which are protected by state law. State law prohibits you from making any further disclosure of this information without the specific written consent of the person to whom it pertains, or as otherwise permitted by law. Any unauthorized further disclosure in violation of state law may result in a fine or halfway sentence or both. A general authorization for the release of medical or other information is NOT sufficient authorization for further disclosure. Allergies and Adverse Reactions Type Description Substance Reaction Status Data Source(s ) No Known No Known Allergies No Known eCW3 ( [place] [facility]) No Known No Known Allergies No Known eCW3 ( [place] [facility]) No Known No Known Allergies No Known eCW3 ( [place] [facility]) Encounters Encounter Providers Location Date Indications Data Source(s ) Outpatient [facility] 03/06/2019 eCW3 ([facility] A28 12:00:00 AM Health Care) EDT - 03/06/2019 12:00:00 AM EDT Outpatient [facility] 01/08/2019 eCW3 ([facility] A28 12:00:00 AM Health Care) EDT - 01/08/2019 12:00:00 AM EDT Outpatient [facility] 11/19/2018 eCW3 ([facility] A28 12:00:00 AM Health Care) EDT - 11/19/2018 12:00:00 AM EDT Medications Medication Brand Start Product Dose Route Administrative Pharmacy [facility] Indications Reaction Description Data Name Date Form Instructions Instructions Source(s) medroxyprog DEPO-P 06/17/ active DEPO-SD OVERA eCW3 esterone ROVERA 2020 150 mg/ml ([place] acetate 150 150 12:00: [place] MG/ML mg/ml 00 AM Health Injectable EST Care) Suspension [Depo-Prove ra] DEPO-UNDERWATER PHOTOGRAPHER A 150 mg/ml medroxyprog DEPO-P 06/17/ active DEPO-SD OVERA eCW3 esterone ROVERA 2020 150 mg/ml ([place] acetate 150 150 12:00: [place] MG/ML mg/ml 00 AM Health Injectable EST Care) Suspension [Depo-Prove ra] DEPO-UNDERWATER PHOTOGRAPHER A 150 mg/ml medroxyprog DEPO-P 06/17/ active DEPO-SD OVERA eCW3 esterone ROVERA 2020 150 mg/ml ([place] acetate 150 150 12:00: [place] MG/ML mg/ml 00 AM Health Injectable EST Care) Suspension [Depo-Prove ra] DEPO-UNDERWATER PHOTOGRAPHER A 150 mg/ml Azithromyci Azithr 03/08/ active Azithro mycin eCW3 n 16.7 omycin 2019 1 GM ([place] MG/ML Oral 1 GM 12:00: [place] Suspension 00 AM Health Azithromyci EDT Care) n 1 GM Azithromyci Azithr 03/08/ active Azithro mycin eCW3 n 16.7 omycin 2019 1 GM ([place] MG/ML Oral 1 GM 12:00: [place] Suspension 00 AM Health Azithromyci EDT Care) n 1 GM Azithromyci Azithr 03/08/ active Azithro mycin eCW3 n 16.7 omycin 2019 1 GM ([place] MG/ML Oral 1 GM 12:00: [place] Suspension 00 AM Health Azithromyci EDT Care) n 1 GM Metronidazo Metron .0 active Metroni dazol eCW3 le 500 MG idazol 2019 {tabl e 500 mg ([place] Oral Tablet e 500 12:00: et} [place] Metronidazo mg 00 AM Health le 500 mg EDT Care) Metronidazo Metron .0 active Metroni dazol eCW3 le 500 MG idazol 2019 {tabl e 500 mg ([place] Oral Tablet e 500 12:00: et} [place] Metronidazo mg 00 AM Health le 500 mg EDT Care) Metronidazo Metron .0 active Metroni dazol eCW3 le 500 MG idazol 2019 {tabl e 500 mg ([place] Oral Tablet e 500 12:00: et} [place] Metronidazo mg 00 AM Health le 500 mg EDT Care) Metronidazo Metron .0 active Metroni dazol eCW3 le 500 MG idazol 2019 {tabl e 500 mg ([place] Oral Tablet e 500 12:00: et} [place] Metronidazo mg 00 AM Health le 500 mg EST Care) Metronidazo Metron .0 active Metroni dazol eCW3 le 500 MG idazol 2019 {tabl e 500 mg ([place] Oral Tablet e 500 12:00: et} [place] Metronidazo mg 00 AM Health le 500 mg EST Care) Metronidazo Metron 01/16/ 1.0 active Metroni dazol eCW3 le 500 MG idazol 2019 {tabl e 500 mg ([place] Oral Tablet e 500 12:00: et} [place] Metronidazo mg 00 AM Health le 500 mg [facility]) Fluconazole Flucon 1.0 suspend Flucon azole eCW3 150 MG Oral azole 2017 {tabl ed 150 MG ([place] Tablet 150 MG 12:00: et} [place] AM [facility] EDT Care) Fluconazole Flucon 1.0 suspend Flucon azole eCW3 150 MG Oral azole 2017 {tabl ed 150 MG ([place] [facility] Tablet 150 MG 12:00: et} [place] AM [facility] EDT Care) Fluconazole Flucon 1.0 suspend Flucon azole eCW3 150 MG Oral azole 2017 {tabl ed 150 MG ([place] Tablet 150 MG 12:00: et} [place] [facility] EDT Care) Fluconazole Flucon 1.0 suspend Flucon azole eCW3 150 MG Oral azole 2017 {tabl ed 150 MG ([place] [facility] Tablet 150 MG 12:00: et} [place] [facility] EDT Care) Fluconazole Flucon 1.0 suspend Flucon azole eCW3 150 MG Oral azole 2017 {tabl ed 150 MG ([place] [facility] Tablet 150 MG 12:00: et} [place] [facility] EDT Care) Fluconazole Flucon 1.0 suspend Flucon azole eCW3 150 MG Oral azole 2017 {tabl ed 150 MG ([place] [facility] Tablet 150 MG 12:00: et} [place] AM [facility] EDT Care) Ortho UNK .0 suspend Ortho eCW3 Tri-Cyclen 2014 {tabl ed Tri-Cyclen ([place] (28) 12:00: et} () [place] 0.18/0.215/ 00 AM 0.18/0.215/0 Health 0.25 MG-35 EDT .25 MG-35 Care ) MCG MCG Ortho UNK .0 suspend Ortho eCW3 Tri-Cyclen 2014 {tabl ed Tri-Cyclen ([place] (28) 12:00: et} (28) [place] 0.18/0.215/ 00 AM 0.18/0.215/0 Health 0.25 MG-35 EDT .25 MG-35 Care ) MCG MCG Ortho UNK 1.0 suspend Ortho eCW3 Tri-Cyclen 2014 {tabl ed Tri-Cyclen (H ud () 12:00: et} () [place] 0.18/0.215/ 00 AM 0.18/0.215/0 Health 0.25 MG-35 EDT .25 MG-35 Care ) MCG MCG Fluconazole Flucon .0 suspend Flucon azole eCW3 150 MG Oral azole 2014 {tabl ed 150 MG ([place] son Tablet 150 MG 12:00: et} [place] AM Health EDT Care) Fluconazole Flucon .0 suspend Flucon azole eCW3 150 MG Oral azole 2014 {tabl ed 150 MG ([place] [facility] Tablet 150 MG 12:00: et} [place] AM Health EDT Care) Fluconazole Flucon .0 suspend Flucon azole eCW3 150 MG Oral azole 2014 {tabl ed 150 MG ([place] [facility] Tablet 150 MG 12:00: et} [place] AM Health EDT Care) Ortho UNK .0 suspend Ortho eCW3 Tri-Cyclen 2014 {tabl ed Tri-Cyclen ( () 12:00: et} () [place] 0.18/0.215/ 00 AM 0.18/0.215/0 Health 0.25 MG-35 EDT .25 MG-35 Care ) MCG MCG Ortho UNK .0 suspend Ortho eCW3 Tri-Cyclen 2014 {tabl ed Tri-Cyclen (H ud () 12:00: et} () [place] 0.18/0.215/ 00 AM 0.18/0.215/0 Health 0.25 MG-35 EDT .25 MG-35 Care ) MCG MCG Ortho UNK .0 suspend Ortho eCW3 Tri-Cyclen 2014 {tabl ed Tri-Cyclen ([facility] ud[place] () 12:00: et} () [place] 0.18/0.215/ 00 AM 0.18/0.215/0 Health 0.25 MG-35 EDT .25 MG-35 Care ) MCG MCG DEPO-UNDERWATER PHOTOGRAPHER UNK 08/27/ suspend DEPO-PRO VERA eCW3 A 150 MG/ML 2014 ed 150 MG/ML ( dson 12:00: [place] 00 AM Health EDT Care) DEPO-UNDERWATER PHOTOGRAPHER UNK 08/27/ suspend DEPO-PRO VERA eCW3 A 150 MG/ML 2014 ed 150 MG/ML ( dson 12:00: [place] 00 AM Health EDT Care) DEPO-UNDERWATER PHOTOGRAPHER UNK 08/27/ suspend DEPO-PRO VERA eCW3 A 150 MG/ML 2014 ed 150 MG/ML ( dson 12:00: [place] 00 AM Health EDT Care) Lo Loestrin Lo .0 suspend Lo Loest rin eCW3 Fe 1 MG-10 Loestr 2014 {tabl ed Fe 1 MG-10 ([place] MCG / 10 in Fe 12:00: et} MCG / 10 MCG [place] MCG 1 00 AM Health MG-10 EST Care) MCG / 10 MCG Lo Loestrin Lo .0 suspend Lo Loest rin eCW3 Fe 1 MG-10 Loestr 2014 {tabl ed Fe 1 MG-10 ([place] MCG / 10 in Fe 12:00: et} MCG / 10 MCG [place] MCG 1 00 AM Health MG-10 EST Care) MCG / 10 MCG Lo Loestrin Lo .0 suspend Lo Loest rin eCW3 Fe 1 MG-10 Loestr 2014 {tabl ed Fe 1 MG-10 ([place] MCG / 10 in Fe 12:00: et} MCG / 10 MCG [place] MCG 1 00 AM Health MG-10 EST Care) MCG / 10 MCG Metronidazo Flagyl 1.0 active Flagyl 50 0 eCW3 le 500 MG 500 MG {tabl MG ([place] Oral Tablet et} [place] [Flagyl] Health Flagyl 500 Care) MG UNK suspend eCW3 Vitamins ed Vitamins ([facility]) DEPO-UNDERWATER PHOTOGRAPHER UNK active DEPO-UNDERWATER PHOTOGRAPHER A eCW3 A 150 MG/ML 150 MG/ML ([facility]) DEPO-UNDERWATER PHOTOGRAPHER UNK active DEPO-UNDERWATER PHOTOGRAPHER A eCW3 A 150 MG/ML 150 MG/ML ([facility]) Fluconazole Flucon 1.0 active Fluconazo le eCW3 150 MG Oral azole {tabl 150 MG ([place] Tablet 150 MG et} [facility]) Fluconazole Flucon 1.0 active Fluconazo le eCW3 150 MG Oral azole {tabl 150 MG ([place] son Tablet 150 MG et} [facility]) Fluconazole Flucon 1.0 active Fluconazo le eCW3 150 MG Oral azole {tabl 150 MG ([place] son Tablet 150 MG et} [facility]) Fluconazole Flucon 1.0 active Fluconazo le eCW3 150 MG Oral azole {tabl 150 MG ([place] [facility] Tablet 150 MG et} [facility]) DEPO-UNDERWATER PHOTOGRAPHER UNK active DEPO-UNDERWATER PHOTOGRAPHER A eCW3 A 150 MG/ML 150 MG/ML ([facility]) Lysteda UNK suspend [place] eCW3 ed ([facility]) UNK suspend eCW3 Vitamins ed Vitamins ([facility]) DEPO-UNDERWATER PHOTOGRAPHER UNK active DEPO-UNDERWATER PHOTOGRAPHER A eCW3 A 150 MG/ML 150 MG/ML ([facility]) Metronidazo Flagyl 1.0 active Flagyl 50 0 eCW3 le 500 MG 500 MG {tabl MG ([place] Oral Tablet et} [place] [[address]) MG Fluconazole Flucon 1.0 active Fluconazo le eCW3 150 MG Oral azole {tabl 150 MG ([facility] son Tablet 150 MG et} [facility]) Fluconazole Flucon 1.0 active Fluconazo le eCW3 150 MG Oral azole {tabl 150 MG ([place] [facility] Tablet 150 MG et} [facility]) Ortho UNK suspend Ortho eCW3 Tri-Cyclen ed Tri-Cyclen ([facility] (28) (28) [facility]) Metronidazo Flagyl 1.0 active Flagyl 50 0 eCW3 le 500 MG 500 MG {tabl MG ([place] Oral Tablet et} [place] [[facility]] [facility] [address] [facility]) MG Lysteda UNK suspend [place] eCW3 ed ([facility]) Fluconazole Flucon 1.0 active Fluconazo le eCW3 150 MG Oral azole {tabl 150 MG ([place] son Tablet 150 MG et} [facility]) Ortho UNK suspend Ortho eCW3 Tri-Cyclen ed Tri-Cyclen ( dson (28) (28) [facility]) Fluconazole Flucon 1.0 active Fluconazo le eCW3 150 MG Oral azole {tabl 150 MG ([facility] son Tablet 150 MG et} [facility]) DEPO-UNDERWATER PHOTOGRAPHER UNK active DEPO-UNDERWATER PHOTOGRAPHER A eCW3 A 150 MG/ML 150 MG/ML ([facility]) UNK suspend eCW3 Vitamins ed Vitamins ([facility]) Lysteda UNK suspend [place] eCW3 ed ([facility]) Ortho UNK suspend Ortho eCW3 Tri-Cyclen ed Tri-Cyclen ([place] [facility] (28) (28) [facility]) DEPO-UNDERWATER PHOTOGRAPHER UNK active DEPO-UNDERWATER PHOTOGRAPHER A eCW3 A 150 MG/ML 150 MG/ML ([facility]) Fluconazole Flucon 1.0 active Fluconazo le eCW3 150 MG Oral azole {tabl 150 MG ([facility] son Tablet 150 MG et} [facility]) Insurance Providers Payer name Policy type Policy ID Covered Covered constitution party's Policy P bhavna / Coverage constitution party ID relationship to [employer] Inf ormation type roberts COUNTS INCLUDE 234 BEDS AT [facility] [id number] SP [id number] NON CAP [place] [facility] [id number] S [id number] [place] Medicaid [id number] S [id number] Regular Clinic Visit Dental [id number] S [id number] [employer] MKD (DO NOT USE) [id number] S [id number] [place] [facility] Auth PCP Not MVNHC/YHC/C [place] FFS [id number] S [id number] [facility] Chele Vision [id number] S [id number] MKD [facility] Family [id number] S [id number] Planning MKD & EP 3 & 4 Only Problems, Conditions, and Diagnoses Code Display Name Description Problem Type Effective Dates Data Source(s) N76.1 Chronic vaginitis Chronic vaginitis Problem 03/06/2019 eCW3 ([place] 12:00:00 AM EDT [facility]) N76.0 Acute vaginitis Acute vaginitis Problem 02/15/2017 eCW3 ([place] 12:00:00 AM [facility] Care) Z33.1 Problem eCW3 ([facility]) V22.1 Supervision of , NORMAL Problem eCW 3 ([place] high risk [facility] Care) V22.2 STATE STATE Diagnosis [address] ([place] INCIDENTAL INCIDENTAL 07:29:24 PM [facility]) Social History Code Duration Value Status Description Data Source(s ) Smoking 03/06/2019 Current Smoker completed Current Smoker eCW3 ( [facility] 12:00:00 AM ED Health Ms re) Smoking 03/06/2019 Current Smoker completed Current Smoker eCW3 ( [facility] 12:00:[address] [facility] Health Ms re) Smoking 03/06/2019 Current Smoker completed Current Smoker eCW3 ( [facility] 12:00:00 AM [facility] re) Current Smoker completed Current Smoker eCW3 ( [facility]) Current Smoker completed Current Smoker eCW3 ( [facility]) Current Smoker completed Current Smoker eCW3 ( [facility]) Vital Signs ID Date Data Source UNK Name Value Range Interpretation Code Description Data Source(s) Diastolic blood 64 mm[Hg] 64 mm[Hg] eCW3 ([facility]) Systolic blood 104 mm[Hg] 104 mm[Hg] eCW3 ([facility]) Body temperature 97.9 [degF] 97.9 [degF] eCW3 ( [facility]) Heart rate 20 /min 20 /min eCW3 ([facility]) Body mass index 29.37 kg/m2 29.37 kg/m2 eCW3 ([place] (BMI) [Ratio] [facility]) Body weight 182 [lb_av] 182 [lb_av] eCW3 ([facility]) Body height 66 [in_i] 66 [in_i] eCW3 ([facility]) Diastolic blood 75 mm[Hg] 75 mm[Hg] eCW3 ([facility]) Systolic blood 117 mm[Hg] 117 mm[Hg] eCW3 ([facility]) Body temperature 98.5 [degF] 98.5 [degF] eCW3 ( [facility]) Heart rate 20 /min 20 /min eCW3 ([facility]) Body mass index 30.02 kg/m2 30.02 kg/m2 eCW3 ([place] (BMI) [Ratio] [facility]) Body weight 186 [lb_av] 186 [lb_av] eCW3 ([facility]) Body height 66 [in_i] 66 [in_i] eCW3 ([facility]) Patient Treatment Plan of Care Planned Activity Planned Date Details Description Data Source (s) medroxyprogesterone acetate 06/17/2019 eCW3 ([facility] 150 MG/ML Injectable 12:00:00 AM [facility]) Suspension [Depo-Provera] medroxyprogesterone acetate 06/17/2019 eCW3 ([facility] 150 MG/ML Injectable 12:00:00 AM EST [facility]) Suspension [Depo-Provera] medroxyprogesterone acetate 06/17/2019 eCW3 ([facility] 150 MG/ML Injectable 12:00:00 AM [facility]) Suspension [Depo-Provera] DEPO-PROVERA 150 MG/ML eCW3 ([facility]) DEPO-PROVERA 150 MG/ML eCW3 ([facility]) DEPO-PROVERA 150 MG/ML eCW3 ([facility])
--- NOTE | 2020-02-25 19:11 | PDOC ---
*Physical Exam - Vital Signs Last Vital Signs Temp Pulse Resp BP Pulse Ox 98.7 F 70 16 136/83 100 02/25/20 18:58 02/25/20 18:58 02/25/20 18:58 02/25/20 18:58 02/25/20 18:58 - Physical Exam 02/25/20 19:08 gen: aaox3 heart; +s1s2 reg lungs: slighly dimished bs L lung otherwise clear Heart Score/ECG Review - ECG Intrepretation Comment:: 02/25/20 19:09 sinus at 73, nl axis, nl interval, no acute st/t wave ED Treatment Course - LABORATORY CBC & Chemistry Diagram: 02/25/20 17:00 02/25/20 17:00 - ADDITIONAL ORDERS Additional order review: Laboratory Results 02/25/20 02/25/20 17:00 17:00 Sodium 139 Potassium 3.9 Chloride 109 H Carbon Dioxide 24 Anion Gap 6 L BUN 8.3 Creatinine 0.9 Est GFR (CKD-EPI)AfAm 93.35 Est GFR (CKD-EPI)NonAf 80.54 Random Glucose 105 Calcium 8.6 Total Bilirubin 0.3 AST 28 ALT 22 Alkaline Phosphatase 57 Creatine Kinase 432 H Creatine Kinase Index No Result Required. CK-MB (CK-2) < 1.0 Troponin I < 0.02 Total Protein 8.1 Albumin 3.7 Serum , Qual Negative 02/25/20 17:00 RBC 3.92 MCV 67.9 L MCHC 30.4 L RDW 21.1 H MPV 9.9 D Neutrophils % 73.9 Lymphocytes % 15.3 Monocytes % 8.0 Eosinophils % 2.7 Basophils % 0.1 Medical Decision Making - Medical Decision Making 02/25/20 19:09 a/p: 39yo female with L sided cp -pt with complicated ptx on ct had prior vats at [facility] will transfer back to [facility] for ct sx eval Discharge - Discharge Information Problems reviewed: Yes Clinical Impression/Diagnosis: SOB (shortness of breath), Pneumothorax on left Condition: Guarded Disposition: TRANSFER ACUTE CARE/OTHER HOSP - Follow up/Referral Referrals: Jose Lagos MD [Primary Care Provider] - - Patient Discharge Instructions - Post Discharge Activity - Transfer to Acute Care Facility Receiving Facility Name: [facility]
[2020-02-25 19:23] LABS: ANISOCYTOSIS 1+; MACROCYTOSIS 0
[2020-02-25] MEDS ORDERED: morphine CARPU-JECT 4 MG/1 ML DISP.SYRIN IVPUSH ONE (19:37)
[2020-02-25] MEDS ORDERED: morphine SULFATE 4 MG/ML VIAL ONE (19:43)
--- NOTE | 2020-02-25 20:43 | PDOC ---
*Physical Exam - Vital Signs Last Vital Signs Temp Pulse Resp BP Pulse Ox 98.7 F 70 16 136/83 100 02/25/20 18:58 02/25/20 18:58 02/25/20 18:58 02/25/20 18:58 02/25/20 18:58 ED Treatment Course - LABORATORY CBC & Chemistry Diagram: 02/25/20 17:00 02/25/20 17:00 - ADDITIONAL ORDERS Additional order review: Laboratory Results 02/25/20 02/25/20 02/25/20 17:00 17:00 17:00 Sodium 139 Potassium 3.9 Chloride 109 H Carbon Dioxide 24 Anion Gap 6 L BUN 8.3 Creatinine 0.9 Est GFR (CKD-EPI)AfAm 93.35 Est GFR (CKD-EPI)NonAf 80.54 Random Glucose 105 Calcium 8.6 Total Bilirubin 0.3 AST 28 ALT 22 Alkaline Phosphatase 57 Creatine Kinase 432 H Creatine Kinase Index No Result Required. CK-MB (CK-2) < 1.0 Troponin I < 0.02 Total Protein 8.1 Albumin 3.7 Serum , Qual Negative Blood Type O POSITIVE Antibody Screen Negative 02/25/20 17:00 RBC 3.92 MCV 67.9 L MCHC 30.4 L RDW 21.1 H MPV 9.9 D Neutrophils % 73.9 Lymphocytes % 15.3 Monocytes % 8.0 Eosinophils % 2.7 Basophils % 0.1 - Medications Given in the ED: ED Medications Discontinued Medications Generic Name Dose Route Start Last Admin Trade Name Freq PRN Reason Stop Dose Admin Morphine Sulfate 4 mg 02/25/20 19:37 02/25/20 19:53 Morphine Injection - IVPUSH 02/25/20 19:38 4 mg ONCE ONE Administration Medical Decision Making - Medical Decision Making Pt was signed out by YARD CONDUCTOR Brian Ragland. Pt presented with SOB, found to have L-sided pneumothorax 25-30%. Pt has been hemodynamically stable. Provided 4 mg IV morphine and NRB for comfort. Pt accepted to [facility] (Dr. Abbasi, ER), also spoke to CT surgery (Dr. Sanchez) Pt NPO after midnight Pending transfer to [facility] 02/25/20 20:41 EMS arrived for pt. Pt hemodynamically stable, NRB for comfort. 02/25/20 21:51 Discharge - Discharge Information Problems reviewed: Yes Clinical Impression/Diagnosis: SOB (shortness of breath), Pneumothorax on left Condition: Guarded Disposition: TRANSFER ACUTE CARE/OTHER HOSP - Admission No - Follow up/Referral Referrals: Jose Lagos MD [Primary Care Provider] - - Patient Discharge Instructions - Post Discharge Activity - Transfer to Acute Care Facility Receiving Facility Name: [facility] Accepting Physician:: Dr. Abbasi (ER)
[2020-02-26 01:22] VITALS: BP 153/89; PULSE 77
--- NOTE | 2020-02-26 10:01 | EKG ---
Test Reason : Blood Pressure : / mmHG Vent. Rate : 073 BPM Atrial Rate : 073 BPM P-R Int : 170 ms QRS Dur : 096 ms QT Int : 402 ms P-R-T Axes : 048 073 058 degrees QTc Int : 442 ms NORMAL SINUS RHYTHM NORMAL ECG WHEN COMPARED WITH ECG OF 13-AUG-2019 18:37, NO SIGNIFICANT CHANGE WAS FOUND Confirmed by Miguel Dickens ([id number]) on 02/26/2020 10:00:32 AM Referred By: Confirmed By:Miguel Dickens
== END 2020-02-25 21:45 | disposition short-term general hospital (02) ==
LOC: JER 16:07
PROC: 3E033NZ Introduction of Analgesics, Hypnotics, Sedatives into Peripheral Vein, Percutaneous Approach (ICD-10-PCS; principal; 2020-02-25)
PROC: 3E033GC Introduction of Other Therapeutic Substance into Peripheral Vein, Percutaneous Approach (ICD-10-PCS; 2020-02-25)
DX: R06.02 Shortness of breath (principal); J93.9 Pneumothorax, unspecified
CPT/HCPCS: 36415; 71046-TC-FY; 71275-TC; 80053; 82550; 82553; 84484; 84703; 85025; 86850; 86900; 86901; 93005; 93010; 99285-25; Q9967

== ENCOUNTER 2021-06-03 16:24 | Emergency (ER) | payer OTHER ==
[2021-06-03 16:37] VITALS: BP 111/67; PULSE 80; TEMP 97.9; BMI 29.2
[2021-06-04 16:11] LABS: SARS-CoV-2 NAA Not Detected (Not Detected)
== END 2021-06-03 17:50 | disposition home or self-care (01) ==
LOC: JER 16:24
DX: B34.9 Viral infection, unspecified (principal)
CPT/HCPCS: 87804; 99283-25; C9803; U0003; U0005

== ENCOUNTER 2024-11-02 15:46 | Observation (INO) | payer OTHER ==
[2024-11-02] MEDS ORDERED: ACETAMINOPHEN INJECTION 100 ML ONE (16:38)
[2024-11-02] MEDS: ACETAMINOPHEN 1000 MG/100 ML BAG IVPB ONE (17:30)
[2024-11-02 17:43] LABS: ABSOLUTE IMMATURE GRANULOCYTES 0.01 x10^3/uL (0.0-0.031); BASOPHILS # 0.01 x10^3/uL (0.01-0.08); EOSINOPHILS # 0.11 x10^3/uL (0.04-0.36); HEMATOCRIT 23.4 % (34.1-44.9); HEMOGLOBIN 6.2 g/dL (11.2-15.7); MCHC 26.5 g/dl (32.2-35.5)
[2024-11-02 17:44] LABS: EOSINOPHIL % 2.4 % (0.7-5.8); MEAN CELL VOLUME 70.1 fl (79.4-94.8); MEAN PLT VOLUME 10.6 fl (9.4-12.3); MONOCYTE # 0.24 x10^3/uL (0.24-0.86); MONOCYTE % 5.2 % (4.7-12.5); PLATELET COUNT 195 x10^3/uL (182-369); RDW 19.5 % (12.2-17.1)
[2024-11-02 17:50] LABS: INR 1.07 (0.83-1.09); PROTHROMBIN TIME (PATIENT) 11.7 SEC (9.7-13.0)
[2024-11-02 17:53] LABS: ACTIVATED PTT 28.6 SECONDS (25.2-36.5)
[2024-11-02 18:00] LABS: POTASSIUM 3.7 mmol/L (3.5-5.1)
[2024-11-02 18:02] LABS: CALCIUM 9.2 mg/dL (8.5-10.1)
[2024-11-02 18:03] LABS: ALBUMIN 3.9 g/dl (3.4-5.0); BLOOD UREA NITROGEN 11.1 mg/dL (7-18); MAGNESIUM 2.1 mg/dL (1.8-2.4)
[2024-11-02 18:07] LABS: BILIRUBIN,TOTAL 0.4 mg/dL (0.2-1); CREATININE 0.9 mg/dL (0.55-1.3); TOT PROT 7.6 g/dl (6.4-8.2)
[2024-11-02 18:57] LABS: HCV DIAGNOSTIC IN-HOUSE W/RFLX NON-REACTIVE (NONREACTIVE); HIV INTERPRETATION NEGATIVE (NEGATIVE)
[2024-11-02] MEDS ORDERED: METOCLOPRAMIDE HCL INJECTION 10 MG/2 ML VIAL ONE (20:00)
[2024-11-02] MEDS: METOCLOPRAMIDE HCL INJECTION 10 MG/2 ML VIAL IVPUSH ONE (20:33)
[2024-11-02] MEDS ORDERED: METOCLOPRAMIDE HCL INJECTION 10 MG/2 ML VIAL IVPUSH PRN (20:47)
[2024-11-02] MEDS: IRON SUCROSE INJECTION 200 MG in SODIUM CHLORIDE 100 ML IVPB ONE (23:04)
[2024-11-02] MEDS: ACETAMINOPHEN 325 MG TABLET (FP) PO PRN (23:04)
[2024-11-02 23:29] VITALS: BMI 35.0
[2024-11-03 09:08] LABS: ABSOLUTE IMMATURE GRANULOCYTES 0.01 x10^3/uL (0.0-0.031); BASOPHILS # 0.01 x10^3/uL (0.01-0.08); EOSINOPHIL % 3.2 % (0.7-5.8); EOSINOPHILS # 0.11 x10^3/uL (0.04-0.36); HEMATOCRIT 21.5 % (34.1-44.9); HEMOGLOBIN 5.7 g/dL (11.2-15.7); MCHC 26.5 g/dl (32.2-35.5); MONOCYTE # 0.33 x10^3/uL (0.24-0.86); MONOCYTE % 9.5 % (4.7-12.5); PLATELET COUNT 168 x10^3/uL (182-369); RDW 19.3 % (12.2-17.1)
[2024-11-03 09:23] LABS: Reticulocyte % 1.92 % (0.5-1.7)
[2024-11-03 09:44] LABS: POTASSIUM 3.7 mmol/L (3.5-5.1)
[2024-11-03 09:48] LABS: ALBUMIN 3.3 g/dl (3.4-5.0); BLOOD UREA NITROGEN 10.4 mg/dL (7-18); CALCIUM 8.4 mg/dL (8.5-10.1); MAGNESIUM 1.9 mg/dL (1.8-2.4)
[2024-11-03 09:50] LABS: CREATININE 0.7 mg/dL (0.55-1.3); PHOSPHOROUS 2.8 mg/dL (2.5-4.9)
[2024-11-03 09:52] LABS: BILIRUBIN,TOTAL 0.2 mg/dL (0.2-1)
[2024-11-03 09:53] LABS: TOT PROT 6.5 g/dl (6.4-8.2)
[2024-11-03] MEDS: IRON SUCROSE INJECTION 200 MG in SODIUM CHLORIDE 100 ML IVPB ONE ×2 (10:57→20:31)
[2024-11-03] MEDS: ACETAMINOPHEN 1000 MG/100 ML BAG IVPB PRN (12:16)
[2024-11-03 12:22] LABS: BASOPHILS # 0.01 x10^3/uL (0.01-0.08); EOSINOPHIL % 2.7 % (0.7-5.8); EOSINOPHILS # 0.11 x10^3/uL (0.04-0.36); HEMATOCRIT 23.8 % (34.1-44.9); HEMOGLOBIN 6.2 g/dL (11.2-15.7); MCHC 26.1 g/dl (32.2-35.5); MEAN CELL VOLUME 70.6 fl (79.4-94.8); MONOCYTE # 0.37 x10^3/uL (0.24-0.86); MONOCYTE % 9.2 % (4.7-12.5); PLATELET COUNT 186 x10^3/uL (182-369); RDW 19.3 % (12.2-17.1)
[2024-11-03] MEDS ORDERED: ACETAMINOPHEN 1000 MG/100 ML BAG IVPB PRN (18:06)
[2024-11-03] MEDS: traMADol HCL 50 MG TABLET PO PRN (18:17)
[2024-11-03] MEDS: LIDOCAINE 5% TOPICAL PATCH TP SCH (18:18)
[2024-11-03] MEDS: LIDOCAINE PATCH REMOVAL MC SCH (21:56)
[2024-11-04 09:01] LABS: ABSOLUTE IMMATURE GRANULOCYTES 0.01 x10^3/uL (0.0-0.031); BASOPHILS # 0.01 x10^3/uL (0.01-0.08); EOSINOPHIL % 3.3 % (0.7-5.8); EOSINOPHILS # 0.12 x10^3/uL (0.04-0.36); HEMATOCRIT 22.3 % (34.1-44.9); HEMOGLOBIN 5.8 g/dL (11.2-15.7); MEAN CELL VOLUME 70.1 fl (79.4-94.8); MONOCYTE % 8.2 % (4.7-12.5); PLATELET COUNT 158 x10^3/uL (182-369); RDW 19.2 % (12.2-17.1)
[2024-11-04 09:02] LABS: Reticulocyte % 2.24 % (0.5-1.7)
[2024-11-04 09:23] LABS: POTASSIUM 3.7 mmol/L (3.5-5.1)
[2024-11-04 09:30] LABS: ALBUMIN 3.5 g/dl (3.4-5.0)
[2024-11-04 09:31] LABS: BLOOD UREA NITROGEN 9.4 mg/dL (7-18)
[2024-11-04 09:32] LABS: CREATININE 0.8 mg/dL (0.55-1.3)
[2024-11-04 09:33] LABS: BILIRUBIN,TOTAL 0.3 mg/dL (0.2-1); MAGNESIUM 1.9 mg/dL (1.8-2.4); TOT PROT 6.9 g/dl (6.4-8.2)
[2024-11-04] MEDS: POLYETHYLENE GLYCOL (HEALTHYLAX) 3350 17 GM PACKET PO SCH (15:59)
[2024-11-04 16:02] LABS: POTASSIUM 3.8 mmol/L (3.5-5.1)
[2024-11-04 16:03] LABS: CALCIUM 9.4 mg/dL (8.5-10.1)
[2024-11-04 16:04] LABS: BLOOD UREA NITROGEN 8.4 mg/dL (7-18)
[2024-11-04 16:07] LABS: CREATININE 0.8 mg/dL (0.55-1.3)
[2024-11-04] MEDS: IRON SUCROSE INJECTION 200 MG in SODIUM CHLORIDE 100 ML IVPB ONE (18:13)
[2024-11-04] MEDS: ACETAMINOPHEN 1000 MG/100 ML BAG IVPB ONE (23:16)
[2024-11-05] MEDS: ACETAMINOPHEN 1000 MG/100 ML BAG IVPB PRN (07:41)
[2024-11-05 09:02] LABS: ABSOLUTE IMMATURE GRANULOCYTES 0.02 x10^3/uL (0.0-0.031); BASOPHILS # 0.01 x10^3/uL (0.01-0.08)
[2024-11-05 09:04] LABS: EOSINOPHIL % 2.9 % (0.7-5.8); EOSINOPHILS # 0.12 x10^3/uL (0.04-0.36); HEMATOCRIT 24.5 % (34.1-44.9); HEMOGLOBIN 6.8 g/dL (11.2-15.7); MCHC 27.8 g/dl (32.2-35.5); MEAN CELL VOLUME 71.8 fl (79.4-94.8); MONOCYTE # 0.36 x10^3/uL (0.24-0.86); MONOCYTE % 8.6 % (4.7-12.5); PLATELET COUNT 130 x10^3/uL (182-369); RDW 21.2 % (12.2-17.1)
[2024-11-05 09:23] LABS: ALBUMIN 3.6 g/dl (3.4-5.0)
[2024-11-05 09:24] LABS: BLOOD UREA NITROGEN 10.1 mg/dL (7-18); CALCIUM 9.2 mg/dL (8.5-10.1)
[2024-11-05 09:25] LABS: BILIRUBIN,TOTAL 0.3 mg/dL (0.2-1); MAGNESIUM 1.9 mg/dL (1.8-2.4); TOT PROT 6.9 g/dl (6.4-8.2)
[2024-11-05 09:27] LABS: CREATININE 0.8 mg/dL (0.55-1.3)
[2024-11-05] MEDS: IRON SUCROSE INJECTION 200 MG in SODIUM CHLORIDE 100 ML IVPB ONE (12:09)
[2024-11-05] MEDS: CycloBENZAprine HCL 5 MG TABLET PO ONE (12:09)
[2024-11-05] MEDS: NAPROXEN 375 MG TABLET PO ONE (12:10)
[2024-11-05] MEDS: CycloBENZAprine HCL 10 MG TABLET (FP) PO ONE (12:11)
[2024-11-05] MEDS: BISACODYL 5 MG TABLET.DR (FP) PO ONE ×2 (16:24→16:38)
[2024-11-05] MEDS: PEG 3350/NA SULF BICARB CL/KCL 4000 ML SOLN.RECON PO ONE (17:21)
[2024-11-06] MEDS ORDERED: FERROUS SO4 325 MG TABLET (FP) PO SCH (07:00)
[2024-11-06 08:44] LABS: ABSOLUTE IMMATURE GRANULOCYTES 0.02 x10^3/uL (0.0-0.031); BASOPHILS # 0.02 x10^3/uL (0.01-0.08); HEMATOCRIT 27.7 % (34.1-44.9); HEMOGLOBIN 7.6 g/dL (11.2-15.7); MCHC 27.4 g/dl (32.2-35.5); MEAN CELL VOLUME 73.3 fl (79.4-94.8); MONOCYTE # 0.46 x10^3/uL (0.24-0.86); MONOCYTE % 9.3 % (4.7-12.5); PLATELET COUNT 146 x10^3/uL (182-369); RDW 22.9 % (12.2-17.1)
[2024-11-06 08:51] LABS: INR 1.17 (0.83-1.09); PROTHROMBIN TIME (PATIENT) 12.8 SEC (9.7-13.0)
[2024-11-06 08:58] LABS: POTASSIUM 3.8 mmol/L (3.5-5.1)
[2024-11-06 09:01] LABS: ALBUMIN 3.9 g/dl (3.4-5.0); BLOOD UREA NITROGEN 7.2 mg/dL (7-18); MAGNESIUM 2.1 mg/dL (1.8-2.4)
[2024-11-06 09:04] LABS: CREATININE 0.8 mg/dL (0.55-1.3); PHOSPHOROUS 3.2 mg/dL (2.5-4.9)
[2024-11-06 09:05] LABS: BILIRUBIN,TOTAL 0.5 mg/dL (0.2-1)
[2024-11-06 09:06] LABS: TOT PROT 7.7 g/dl (6.4-8.2)
[2024-11-06] MEDS ORDERED: MIDAZOLAM HCL 2 MG/2 ML SINGLE DOSE VIAL ONE (12:55)
[2024-11-06 14:11] VITALS: BP 130/71; PULSE 73; RESP 16
[2024-11-06 17:04] VITALS: TEMP 98.2
[2024-11-07 20:11] LABS: GLIADIN ANTIBODY IGA 4 units (0-19); TRANSGLUTAMINASE IGG 2 U/mL (0-5)
== END 2024-11-06 17:35 | disposition home or self-care (01) ==
LOC: JER 15:46 → JERBED 20:38 → J7W 22:31 → J6S 11-04 18:37
PROVIDERS: ADMIT Hospitalist; ATTEND Internal Medicine
PROC: 3E033NZ Introduction of Analgesics, Hypnotics, Sedatives into Peripheral Vein, Percutaneous Approach (ICD-10-PCS; principal; 2024-11-02)
PROC: 3E033GC Introduction of Other Therapeutic Substance into Peripheral Vein, Percutaneous Approach (ICD-10-PCS; 2024-11-02)
PROC: 30233N1 Transfusion of Nonautologous Red Blood Cells into Peripheral Vein, Percutaneous Approach (ICD-10-PCS; 2024-11-02)
PROC: 0DJ08ZZ Inspection of Upper Intestinal Tract, Via Natural or Artificial Opening Endoscopic (ICD-10-PCS; 2024-11-02)
DX: I10 Essential (primary) hypertension (principal); D64.89 Other specified anemias; M54.2 Cervicalgia
CPT/HCPCS: 36415; 36430; 36511; 70490-TC; 74177-TC; 80048; 80053; 82607; 82728; 82746; 82784; 83516; 83540; 83550; 83735; 84100; 84439; 84443; 84445; 84484; 84703; 85025; 85610; 85730; 86376; 86803; 86850; 86870; 86880; 86900; 86901; 86902; 86922; 87389; 93005; 93010; 96365; 96366; 96375; 96376; 99285-25; G0378; J0131; J1756; P9038; P9058; Q9967